=== PATIENT | male | born 1985 | race African-American/Black ===

== ENCOUNTER 2021-10-22 05:37 | Emergency (ER) | payer OTHER ==
[~2021-10-22] VITALS: Ht 180.3 cm; Wt 126.9 kg
[2021-10-22] MEDS ORDERED: OLANZAPINE 10 MG/VIAL IM ONE (06:30)
[2021-10-22] MEDS ORDERED: LORAZEPAM 2MG/ML CPJ IM ONE (06:30)
[2021-10-22 07:50] LABS: CLARITY URINE CLEAR (CLEAR); COLOR URINE DARK YELLOW (YELLOW); KETONES URINE TRACE (NEGATIVE); LEUKOCYTE ESTERASE URINE NEGATIVE (NEGATIVE); NITRITE URINE NEGATIVE (NEGATIVE); OCCULT BLOOD URINE NEGATIVE (NEGATIVE); PH URINE 5.5 (4.5-8.0); PROTEIN URINE TRACE (NEGATIVE); SPECIFIC GRAVITY URINE 1.029 (1.005-1.030)
[2021-10-22 08:03] LABS: *AMPHETAMINES SCREEN URINE NEGATIVE (NEGATIVE); *BARBITURATES SCREEN URINE NEGATIVE (NEGATIVE); *BENZODIAZEPINES SCREEN URINE NEGATIVE (NEGATIVE); *COCAINE SCREEN URINE NEGATIVE (NEGATIVE); CANNABINOID URINE SCREEN PRESUMTIVE POSITIVE (NEGATIVE); METHADONE URINE SCREEN NEGATIVE (NEGATIVE); OPIATES URINE SCREEN NEGATIVE (NEGATIVE); PHENCYCLIDINE URINE SCREEN NEGATIVE (NEGATIVE)
[2021-10-22 09:58] LABS: BASOPHILS % 0.7 % (0.0-2.0); EOSINOPHILS % 0.4 % (0.0-5.0); HEMATOCRIT. 47.3 % (42.0-52.0); HEMOGLOBIN. 15.6 g/dL (14.0-18.0); LYMPHOCYTES % 18.6 % (20.0-50.0); MEAN CORPUSCULAR HEMOGLOBIN 29.3 pg (28.0-32.0); MEAN CORPUSCULAR VOLUME 88.7 fL (80.0-94.0); MEAN PLATELET VOLUME 9.7 fl (7.4-10.4); MONOCYTES % 4.4 % (2.0-8.0); NEUTROPHILS % 75.9 % (40.0-76.0); PLATELET 238 x1000/uL (130-400); RED BLOOD CELL COUNT 5.34 mill/uL (4.7-6.1); RED CELL DISTRIBUTION WIDTH 15.3 % (11.6-14.6)
[2021-10-22 10:10] LABS: CHLORIDE 104 mEq/L (98-107)
[2021-10-22 10:18] LABS: ETHANOL BLOOD < 10 mg/dL
[2021-10-22] MEDS ORDERED: LORAZEPAM 1MG TABLET PO ONE (11:15)
[2021-10-22] MEDS ORDERED: OLANZAPINE 5MG TABLET ODT PO ONE (11:15)
[2021-10-22] MEDS ORDERED: LORAZEPAM 1MG TABLET PO NR (11:45)
[2021-10-22] MEDS: ARIPIPRAZOLE 5MG TABLET PO SCH (11:55)
[2021-10-22] MEDS ORDERED: QUETIAPINE FUMARATE 50MG TABLET PO SCH (21:00)
[2021-10-22] MEDS ORDERED: TRAZODONE HCL 50MG TABLET PO SCH (21:00)
[2021-10-23] MEDS: ARIPIPRAZOLE 5MG TABLET PO SCH ×2 (08:50→09:00)
[2021-10-23 13:30] VITALS: BP 119/92
== END 2021-10-23 18:49 ==
LOC: ER 05:37
DX: R45.851 Suicidal ideations (principal); Z20.822 Contact with and (suspected) exposure to COVID-19; Z86.59 Personal history of other mental and behavioral disorders
CPT/HCPCS: 36415; 80053; 80305; 80307; 80320; 80329; 81003; 85025; 99285; C9803; U0003; U0005; G0480